=== PATIENT | female | born 1965 | race Caucasian/White ===

== ENCOUNTER → 2016-11-07 | Outpatient (CLI) | payer BC ==
[2016-11-11 20:41] LABS: ANAPLASMA PHAGOCYTOPHIL IGG <1:64 (<1:64); ANAPLASMA PHAGOCYTOPHIL IGM <1:20 (<1:20); EHRLICHIA CHAFF IGG AB <1:64 (<1:64); EHRLICHIA CHAFF IGM AB <1:20 (<1:20)
== END | disposition home or self-care (01) ==
LOC: C.LAB1850 14:04
PROVIDERS: ATTEND Internal Medicine Infectious Disease
DX: A69.20 Lyme disease, unspecified (principal)

== ENCOUNTER 2023-10-17 07:17 | Observation (INO) ==
--- NOTE | 2023-06-01 20:11 | PAT Medication Instructions ---
Medication Instructions Date of Service June 01, 2023 Home Medications cephalexin 500 mg capsule 500 mg PO QID furosemide 20 mg tablet (Lasix) 20 mg PO DAILY PRN Edema oxycodone-acetaminophen 5 mg-325 mg tablet (Percocet) 1 tab PO Q4H PRN Pain Continue as directed cephalexin 500 mg capsule 500 mg PO QID DO NOT take the morning of surgery furosemide 20 mg tablet (Lasix) 20 mg PO DAILY PRN Edema Take morning of surgery With a small sip of water, OTHERWISE NOTHING TO EAT OR DRINK AFTER MIDNIGHT: oxycodone-acetaminophen 5 mg-325 mg tablet (Percocet) 1 tab PO Q4H PRN Pain (if needed) Take evening before surgery oxycodone-acetaminophen 5 mg-325 mg tablet (Percocet) 1 tab PO Q4H PRN Pain (if needed) furosemide 20 mg tablet (Lasix) 20 mg PO DAILY PRN Edema (if needed) Other Notes If you have any questions please call us at [phone] or [phone] or [phone] or [phone]
--- NOTE | 2023-06-09 10:29 | Anesthesiology Consultation ---
Date of Service June 09, 2023 Assessment & Plan (1) Encounter for pre-operative examination: Chart Review Chart Review: Acceptable Risk for Surgery (pending PCP response/updated ECHO due to heart murmur ) and Patient seen in Pre Admission Testing - Send optimization note to PCP (LYNNE Goss- Uyen LEPE) re: murmur on exam- recommend ECHO prior to surgery - Due to BMI- patient is NOT an idea candidate for OPJ Per PAT appt on 06/09/23- no recent Covid exposures, Covid related symptoms, or recent Covid positive tests. Will leave to surgeon's discretion if preop Covid testing needed. Teaching & Discussion Pre-Anesthesia Teaching/Discussion Notes: Instructed NPO after midnight before surgery,except medications with 15 cc of water. Medication instructions provided according to the PAT guidelines. History Surgery Operation Date: 07/14/23 08:50 Proposed Procedures p Left Total Knee Arthroplasty - Florin Peterson MD Height/Weight Height: 5 ft 3 in Weight: 133.6 kg Allergies Allergy/AdvReac Type Severity Reaction Status Date / Time No Known Allergies Allergy Verified 06/01/23 12:09 Medications Home Medications Medication Instructions Recorded Confirmed Last Taken cephalexin 500 mg capsule 500 mg PO QID 06/01/23 06/01/23 Unknown furosemide 20 mg tablet (Lasix) 20 mg PO DAILY PRN Edema 06/01/23 06/01/23 Unknown oxycodone-acetaminophen 5 mg-325 1 tab PO Q4H PRN Pain 06/01/23 06/01/23 Unknown mg tablet (Percocet) Past Medical History Medical History Diverticulosis Hx of diverticulitis - no recent issues History of kidney stones Morbid obesity Osteoarthritis Sleep apnea unable to tolerate CPAP Exercise / Class Metabolic Activity III < 4 Walking/Shop/Light housework (no chest pain or SOB with flat surface ambulation- no walking device needed ) Past Surgical History Surgical History History of cholecystectomy History of colonoscopy History of laparotomy for ruptured ovarian cyst History of lithotripsy 05/22/23 History of removal of ureteral stent 06/05/23 History of surgery benign tumor excision scalp History of tubal ligation Past Anesthesia History No Hx of Anesthesia Complications and No Family Hx of Anesthesia Complications History of PONV No Hx of Motion Sickness and History of PONV (remote hx with under anesthesia for longer period of time ) Social History Smoking Status: Never smoker Do You Dip or Chew Tobacco: No Hx Alcohol Use: Yes alcohol intake frequency: a few times a month Hx Substance Use: No substance use type: does not use Review of Systems Patient denies chest pain, shortness of breath, dyspnea on exertion, reflux, cough, wheezing, palpitations. No hx of seizures, stroke, [place]. No hx of blood clots or blood transfusions Physical Exam Vital Signs VITALS BP 135/88 P 67 TEMP 97.8 SP02 94% RESP 16 Constitutional no acute distress ENMT Mouth: no TMJ clicking Thyromental Distance: > or= 3.5 Finger Breadths (3.5) Mallampati Class: III Permanent bridge top front Missing molar Crowns to molars Neck neck extension not limited Respiratory normal respiratory effort; no respiratory distress Auscultation: lungs clear to auscultation bilaterally; no wheezes Cardiovascular Rate/Rhythm: regular rate and regular rhythm Heart Sounds: + murmur (II/ murmur noted ) Vessels: no carotid bruit Musculoskeletal Spine: no pain with cervical ROM Extremities: extremities normal to inspection Psychiatric Orientation: alert Lab Results Anesthesia Preop Results Results Anesthesia Widget: 2 WBC 8.51 K/ul (4.8-10.8) 06/09/23 Hgb 14.7 g/dl (12.0-16.0) 06/09/23 Hct 43.9 % (37.0-47.0) 06/09/23 Plt 273 K/uL (130-400) 06/09/23 Na 139 mmol/L (136-145) 06/09/23 K 4.1 mmol/L (3.5-5.1) 06/09/23 Cl 104 mmol/L (98-107) 06/09/23 CO2 31 mmol/L (21-32) 06/09/23 BUN 16 mg/dl (6-23) 06/09/23 Creat 0.68 mg/dl (0.6-1.2) 06/09/23 Glucose Level 97 mg/dl (70-99(Fasting)) 06/09/23 PT 11.0 Seconds (9.0-12.0) 06/09/23 PTT 27.6 Seconds (21.0-31.0) 06/09/23 INR 1.0 (0.9-1.1) 06/09/23 Blood Type O Negative 06/09/23 Antibody Screen NEGATIVE 06/09/23 Testing Electrocardiogram Date: 06/09/23 NSR at 63bpm Normal EKG per cardio Chest X-Ray Date: 06/09/23 Findings: + NAD
--- NOTE | 2023-10-10 13:58 | Anesthesiology Consultation ---
Date of Service October 10, 2023 Assessment & Plan (1) Encounter for pre-operative examination: Chart Review Chart Review: Acceptable Risk for Surgery and Patient NOT seen in Pre Admission Testing - Patient is NOT an OPJ candidate (scheduled as 23 hour obs) -Infectious Disease screening: Per PAT nursing assessment on 10/10/23. No known infectious disease contacts in past 10 days or current infectious disease symptoms. No recent travel outside the country. History Surgery Operation Date: 10/17/23 07:00 Proposed Procedures p Left Total Knee Arthroplasty - Florin Peterson MD Height/Weight Height: 5 ft 3 in Weight: 117.299 kg Allergies Allergy/AdvReac Type Severity Reaction Status Date / Time No Known Allergies Allergy Verified 10/10/23 12:51 Medications Home Medications Medication Instructions Recorded Confirmed Last Taken Wheeled Walker #1 ea 06/28/23 07/13/23 Unknown amino acids 1 tab PO UD 10/10/23 10/10/23 Unknown Past Medical History Medical History Slow to wake up after anesthesia Morbid obesity has lost 36 pounds since 06/2023; insurance had originally denied sx without weight loss Osteoarthritis History of kidney stones Diverticulosis Hx of diverticulitis - no recent issues Sleep apnea unable to tolerate CPAP Past Surgical History Surgical History History of removal of ureteral stent 06/05/23 History of tubal ligation History of surgery benign tumor excision scalp History of cholecystectomy History of laparotomy for ruptured ovarian cyst History of colonoscopy History of lithotripsy 05/22/23 Social History Smoking Status: Never smoker Do You Dip or Chew Tobacco: No Hx Alcohol Use: Yes Alcohol type: wine and hard liquor alcohol intake frequency: a few times a month Alcohol Intake Frequency Comment: maybe once or twice per week Hx Substance Use: No substance use type: does not use Lab Results Anesthesia Preop Results Results Anesthesia Widget: WBC 8.28 K/ul (4.8-10.8) 10/03/23 Hgb 16.7 g/dl (12.0-16.0) H 10/03/23 Hct 49.0 % (37.0-47.0) H 10/03/23 Plt 343 K/uL (130-400) 10/03/23 Na 140 mmol/L (136-145) 10/03/23 K 3.9 mmol/L (3.5-5.1) 10/03/23 Cl 101 mmol/L (98-107) 10/03/23 CO2 30 mmol/L (21-32) 10/03/23 BUN 15 mg/dl (6-23) 10/03/23 Creat 0.79 mg/dl (0.6-1.2) 10/03/23 Glucose Level 100 mg/dl (70-99(Fasting)) H 10/03/23 PT 11.0 Seconds (9.0-12.0) 10/03/23 PTT 30 Seconds (21-31) 10/03/23 INR 1.0 (0.9-1.1) 10/03/23 Blood Type O Negative 10/03/23 Antibody Screen NEGATIVE 10/03/23 Testing Electrocardiogram Date: 06/09/23 NSR at 63bpm Normal EKG per cardio Chest X-Ray Date: 06/09/23 Findings: + NAD Echocardiogram Date: 06/22/23 Calculated EF = 54%. Mild concentric LVH. Nondilated cardiac chambers. Mild aortic valve sclerosis is present. Aortic valve sclerosis without stenosis. Mild MR. Mild TR. Estimated PASP 33 mmHg. Pulmonary hypertension is present. PA systolic pressure is >39 mmHg.
[~2023-10-17 07:17] MED LIST: ACETAMINOPHEN 500 MG TAB PO SCH; BUPIVACAINE LIPOSOME/PF 266 MG, BUPIVACAINE/EPINEPHRINE 50 ML, SODIUM CHLORIDE 0.9% PF ... INFIL SCH; CeleBREX 200 MG CAP PO SCH; FAMOTIDINE 20 MG TAB PO SCH; LR 500ML BOLUS, THEN 15ML/HR IV SCH; LR 60ML/HR IV SCH; METOCLOPRAMIDE HCL 10 MG TABLET PO SCH; ROPIVACAINE 0.5% 5 MG/ML 30 ML VIAL ONE; Scopolamine 1 MG TDSY TD SCH; TRANEXAMIC ACID 1,000 MG **IV Intra-op IV SCH; ceFAZolin 2000MG 2,000 MG/15 ML SYR IV SCH; dexAMETHasone 4 MG TAB PO SCH
[2023-10-17] MEDS ORDERED: PROPOFOL IV EMULSION 10 MG/ML 20 ML VIAL IV ONE (07:23)
[2023-10-17] MEDS ORDERED: MIDAZOLAM HCL 1 MG/ML 2ML VIAL ONE ×2 (07:23→09:29)
[2023-10-17] MEDS ORDERED: LIDOCAINE 2% 2 ML VIAL/AMP(20MG/ML) INFIL ONE (07:23)
[2023-10-17] MEDS ORDERED: ONDANSETRON INJ 2 MG/ML 2 ML VIAL ONE (07:23)
[2023-10-17] MEDS ORDERED: ATROPINE SULFATE 0.1 MG/ML 10ML SYR IV PRN (08:14)
[2023-10-17] MEDS ORDERED: ePHEDrine sulfate 50 MG/ML AMP IV PRN (08:14)
[2023-10-17] MEDS ORDERED: KETOROLAC 30 MG/ML VIAL IV PRN (08:14)
[2023-10-17] MEDS ORDERED: ONDANSETRON INJ 2 MG/ML 2 ML VIAL IV PRN ×2 (08:14→12:24)
[2023-10-17] MEDS: LR 500ML BOLUS, THEN 15ML/HR IV SCH (08:24)
--- NOTE | 2023-10-17 08:49 | History & Physical Bridge Note ---
Date of Service October 17, 2023 History & Physical Bridge Note I have examined the patient, reviewed the History & Physical and in the interval since the performance of the History & Physical I have noted the following changes of clinical significance: no changes noted
[2023-10-17] MEDS ORDERED: SODIUM CHLORIDE 0.9% PF 50 ML VIAL ONE (08:58)
[2023-10-17] MEDS ORDERED: BUPIVACAINE/EPINEPHRINE 0.25% 1:200,000 30 ML VIAL ONE (08:58)
[2023-10-17] MEDS ORDERED: BUPIVACAINE LIPOSOME 1.3% 266 MG/20 ML VIAL ONE (08:59)
--- NOTE | 2023-10-17 11:20 | Operative Report ---
PG Post Operative Report Pre & Post Diagnosis Operation Date: 10/17/23 08:50 Pre-Op Diagnosis: Left Knee Degenerative Joint Disease Post-Op Diagnosis: Left Knee Degenerative Joint Disease I identified the patient and participated in the time-out.: Yes Procedure Operation Date: 10/17/23 08:50 Actual Procedures p Left Total Knee Arthroplasty(Left) - Florin Peterson MD Surgeon Florin Peterson MD Experienced Truck Driver Dev Ogden PA-C Estimated Blood Loss 50 Findings Consistent with Post-Op Diagnosis Operative findings reveal advanced left knee tricompartment DJD. She had extensive grade 4 [id number] disease in all 3 compartments most severe medially. She had about a 10 degree flexion contracture only bend to about 100 degrees preoperatively. Moderate-sized joint effusion. Osteophytes in all 3 compartments. Specimens Left knee sent for pathology. Drains None Anesthesia Type Spinal MAC Complications none Disposition Accompanied Patient To Recovery: No Indications Patient is a 58-year-old female whose had a long history of bilateral knee pain discomfort left side bit worse than the right. She been through extensive conservative treatment which became less successful over time. Become more debilitated by pain. X-ray showed advanced left knee DJD. She elected proceed with surgical treatment. Of note, she was scheduled for surgery previously but canceled as she was denied due to her BMI. She has lost about 35 pounds over the past 4 months and now deemed an acceptable candidate from the insurance standpoint. She has been approved. She is desires to proceed with total knee arthroplasty. Description of Procedure Operative implants consist of: 1 Biomet Vanguard size 65 left posterior stabilized femoral component. 2. Biomet Vanguard size 67 tibial tray. 3. 10 mm posterior stabilized polyethylene insert. 4. 31 x 8 all poly patella. The patient was taken to the operating, identified, placed on the operating table in the supine position. All contact areas were appropriately padded. IV antibiotics tried by anesthesia team. A spinal anesthetic and adductor canal block had been provided in the holding area. Butler catheter was placed in sterile fashion. Left thigh tent was then placed in left lower extremity was then prepped and draped in usual sterile fashion. The left leg was elevated exsanguinated with use of an Esmarch and the tourniquet was placed at 300 mmHg. An anterior approach the left knee was then performed to longitudinal incision centered over the patella. Sharp dissection was carried through subcutaneous tissue down the extensor mechanism. A medial parapatellar arthrotomy incision was made. Some subperiosteal dissection was carried out medially. The fat pad was dissected from Neath patella tendon. Lateral patellofemoral ligament was released. Patella subluxated laterally and the knee was flexed. The osteophytes taken on distal femur. The ACL and PCL were released from the distal femur the tibia subluxated anteriorly. The external tibial alignment jig was then placed in the interface the tibia and adjusted 14 mm medially. Proximal tibial cut was made to move out a millimeter or 2 of bone from the most deficient aspect medial tibial plateau. Some osteophytes taken off medially. The tibia was sized to a size 67. Attention drawn the femur. The distal femur examined the sharp drop with intramedullary canal was suction. A left 5 degree valgus cutting guide was placed. The distal femoral cutting block was pinned in place. This femoral cut was made take an additional 3 mm of bone off distal femur. Femur was then sized to a size 65. We downsize this almost an entire size due to the more narrow medial and lateral dimensions of the femur. The AP cutting block was pinned parallel to the epicondylar axis which was 5 degrees of external rotation. The anterior cut, anterior chamfer, posterior cut, posterior chamfer cuts were made. The box cutting guide was placed in just slight lateral and the box cut was made. The knee was flexed. The remnants of the medial and lateral menisci were excised. The osteophytes were taken off the posterior aspect the femur. She did have quite a bit of bone posteriorly on x-ray but I palpated for these bone fragments and they are outside the capsule. We elected to leave them intact and in place as I was concerned it would cause potential neurovascular damage. A trial femoral component was placed. The tibia was subluxated anteriorly. The tibial tray was pinned in maximum external rotation and the drill and stem punch used to create defect in proximal tibia for the tibial tray. Knee was then trialed and 10 mm insert fit most appropriately. Attention drawn the patella. The patella was cleaned of all soft tissues. Patella thickness measured 21 mm in thickness was cut down to 13. Was sized to a size 31 patella. The lug holes were drilled for 31 patella. The lateral osteophytes removed. Patella button was placed. Knee was taken through range of motion patella tracked nicely with no thumbs test. Attention drawn to placing permanent components. Nupathe all trial components were removed. Bone plug was placed in the distal femur limit blood loss. Double batch Palacos G cement was mixed. Biomet Vanguard size 65 left Po stabilized femoral component, a size 67 tibial tray, 10 mm pro stabilized polyethylene insert, and a 31 x 8 all poly patella then cemented in place. Knee was brought out into full extension till cement hardened. Final cement was then performed. Pericapsular tissues were injected with total 100 cc of combination of 20 cc of Exparel, 30 cc normal saline, 50 cc of quarter percent Marcaine with epinephrine. Patient did receive 1 g tranexamic acid. The tourniquet was then let down for final tourniquet time 61 minutes. Hemostasis assured use electrocautery. The extensor Meclomen closed with combination 1 PDS suture #1 Vicryl suture in a [id number] fashion. Extensor Meclomen checked found to be intact through subcutaneous tissue then closed with 2 Dexon suture in a buried interrupted fashion the skin was closed skin luis armando. Leg was then cleaned and dried and sterile dressing with Xeroform, 4 fours, sterile cast padding, Jamil bandage were applied. Patient then transferred to the recovery in stable condition. Patient tolerated procedure well and there were no complications. Dev Ogden, my physician business development assistant, was present for the entire procedure. His assistance was essential and required for appropriate patient positioning, prepping and draping, surgical exposure, performing the technical details of the operation, placement the implants, closure of the wound, and placement of the sterile bandage. I attest to the content of the Intraoperative Record and any orders documented therein. Any exceptions are noted below.
--- NOTE | 2023-10-17 11:27 | XRay Report ---
XR knee LT 1 or 2V routine CLINICAL HISTORY: Surgical Post Op TECHNIQUE: 2 views of the left knee were obtained. Comparison: Comparison is made to knee radiographs 06/23/2023 FINDINGS: Patient is status post total knee arthroplasty with expected postsurgical changes including soft tiss ue swelling and subcutaneous emphysema. No periarticular lucency or hardware fracture is seen. IMPRESSION: Expected postoperative appearance status post placement of total knee arthroplasty. ACT 112: Negative or not required by law. Electronically signed by: Marcus Prajapati M.D. 10/17/2023 11:26 AM
[2023-10-17] MEDS: HYDROmorphone INJ 1 MG/ML SYRINGE IV PRN ×2 (11:36→11:48)
[2023-10-17] MEDS ORDERED: METOCLOPRAMIDE HCL INJ 5 MG/ML 2 ML VIAL IV PRN (12:24)
[2023-10-17] MEDS ORDERED: NALOXONE HCL 0.4 MG/1 ML VIAL/CARP IV PRN (12:24)
[2023-10-17] MEDS ORDERED: NON-FORMULARY MEDICATION (Amino Acids Tablet) PO SCH (12:24)
[2023-10-17] MEDS ORDERED: bisacodyL 10 MG SUPP PR PRN (12:24)
[2023-10-17] MEDS ORDERED: diphenhydrAMINE Capsule 25 MG CAP PO PRN (12:24)
[2023-10-17] MEDS ORDERED: MAGNESIUM HYDROXIDE SUSP 30 ML UDC PO PRN (12:24)
[2023-10-17] MEDS ORDERED: ALUMINUM/MAGNESIUM SUSP 30 ML UDC PO PRN (12:24)
--- NOTE | 2023-10-17 12:35 | Anesthesiology Progress Note ---
Date of Service October 17, 2023 Anesthesia Post Procedure Vital Signs Vital Signs: Temp Pulse Pulse Pulse Resp BP Pulse Ox 10/17/23 12:25 36.7 C 56 L 16 130/79 96 10/17/23 12:00 36.5 C 66 15 115/58 L 95 10/17/23 11:50 56 L 13 107/54 L 98 10/17/23 11:40 57 L 17 119/70 99 10/17/23 11:30 56 L 19 109/62 97 10/17/23 11:20 69 15 110/80 100 10/17/23 11:12 36.1 C L 74 18 122/64 95 10/17/23 07:44 10/17/23 07:44 36.8 C 69 20 109/88 93 O2 Del Method O2 Flow Rate 10/17/23 12:25 Nasal Cannula 2 10/17/23 12:00 Nasal Cannula 2 10/17/23 11:50 Nasal Cannula 2 10/17/23 11:40 Nasal Cannula 2 10/17/23 11:30 Nasal Cannula 2 10/17/23 11:20 Oxymask 9 10/17/23 11:12 Oxymask 9 10/17/23 07:44 Room Air 10/17/23 07:44 Room Air Pain Intensity Left Knee: Pain Intensity: 6 Transfer of Care Handoff Completed per policy Notes Mental Status: alert / awake / arousable Patient Amnestic to Procedure: Yes Nausea / Vomiting: adequately controlled Pain: adequately controlled Airway Patency, RR, SpO2: stable & adequate BP & HR: stable & adequate Hydration State: stable & adequate Neuraxial Anesthesia: was administered and sensory block is resolving Anesthetic Complications: no major complications apparent
[2023-10-17] MEDS: HYDROmorphone INJ 0.5 MG/0.5 ML SYR IV PRN (12:42)
[2023-10-17] MEDS: SODIUM CHLORIDE 0.9% 1,000 ML IV SCH ×2 (12:42→22:48)
[2023-10-17] MEDS: KETOROLAC 30 MG/ML VIAL IV SCH ×2 (12:42→18:25)
[2023-10-17] MEDS: ACETAMINOPHEN 500 MG TAB PO SCH ×2 (12:49→20:35)
[2023-10-17] MEDS: oxyCODONE HCL IR 5 MG TAB (IMMEDIATE RELEASE) PO PRN ×2 (14:27→20:34)
[2023-10-17] MEDS: Scopolamine CHECK PATCH PLACEMENT SCH (14:28)
[2023-10-17] MEDS: ASCORBIC ACID 500 MG TAB PO SCH (16:54)
[2023-10-17] MEDS: ceFAZolin 2000MG 2,000 MG/15 ML SYR IV SCH (16:56)
[2023-10-17] MEDS ORDERED: TRANEXAMIC ACID / 0.7% NACL 1,000 MG/100 ML BAG IV SCH (17:30)
[2023-10-17] MEDS: DOCUSATE SODIUM 100 MG CAP PO SCH (20:34)
[2023-10-17] MEDS: ASPIRIN 81 MG ECTAB PO SCH (20:35)
[2023-10-17] MEDS: SENNA 8.6 MG TAB PO SCH (20:35)
[2023-10-17] MEDS ORDERED: SENNA 8.6 MG TAB PO SCH (21:00)
[2023-10-18] MEDS: Scopolamine CHECK PATCH PLACEMENT SCH ×3 (00:04→14:56)
[2023-10-18] MEDS: ceFAZolin 2000MG 2,000 MG/15 ML SYR IV SCH (01:32)
[2023-10-18] MEDS: KETOROLAC 30 MG/ML VIAL IV SCH ×4 (01:33→18:43)
[2023-10-18] MEDS: oxyCODONE HCL IR 5 MG TAB (IMMEDIATE RELEASE) PO PRN ×4 (02:32→20:27)
[2023-10-18] MEDS: LR 500ML BOLUS, THEN 15ML/HR IV SCH (05:16)
[2023-10-18 07:16] LABS: Hematocrit (blood only) 37.4 % (37.0-47.0); Hemoglobin 11.9 g/dl (12.0-16.0); Mean Corpuscular Hemoglobin 30.8 pg (25.0-34.0); Mean Corpuscular Hgb Conc 31.8 g/dL (32.0-36.0); Mean Corpuscular Volume 96.9 fL (80.0-100.0); Mean Platelet Volume 10.2 fL (9.4-12.4); Platelet Count 241 K/uL (130-400); RDW Coefficient of Variation 12.5 % (11.5-14.5); RDW Standard Deviation 44.9 fL (36.4-46.3); Red Blood Count 3.86 M/uL (4.20-5.40); White Blood Count 12.52 K/ul (4.8-10.8)
[2023-10-18 07:47] LABS: BUN Creatinine Ratio 18.9 (10-20); Creatinine Clr Calc Pharmacy 103.7 ml/min; Est GFR (African American) 103.5 ml/min; Est GFR (Non-African American) 89.3 ml/min; Potassium 4.5 mmol/L (3.5-5.1)
[2023-10-18] MEDS ORDERED: dexAMETHasone 10 MG in SYRINGE 0 ML IV SCH (08:00)
[2023-10-18] MEDS: DOCUSATE SODIUM 100 MG CAP PO SCH ×2 (08:23→20:28)
[2023-10-18] MEDS: ASCORBIC ACID 500 MG TAB PO SCH ×2 (08:23→16:56)
[2023-10-18] MEDS: ACETAMINOPHEN 500 MG TAB PO SCH ×3 (08:23→20:28)
[2023-10-18] MEDS: ASPIRIN 81 MG ECTAB PO SCH ×2 (08:23→20:28)
[2023-10-18] MEDS: MULTIVITAMIN TAB PO SCH (08:23)
--- NOTE | 2023-10-18 09:23 | Orthopedic Progress Note ---
Date of Service October 18, 2023 Assessment & Plan (1) Status post left knee replacement: Overall, she is doing quite well today with good pain control at the left knee. She will be seen by physical therapy today to work on ambulation and range of motion exercises. She is on aspirin for DVT prophylaxis. She can be discharged home later today pending physical therapy evaluation. She will follow-up in [address] Peterson for postoperative care. Clyde Briones) was seen and evaluated at bedside today resting comfortably in no apparent distress. She notes that her pain is well-controlled today to the left knee. She notes that she has been up and out of bed but has not ambulated much yet. She has yet to been seen by physical therapy this morning. She denies any other concerns today. Review of Systems All systems reviewed & are unremarkable except as noted in HPI & below. Physical Exam . On physical examination of her left knee, her dressing is in place, clean, dry, and intact. Her leg is out in full extension. She has active plantarflexion dorsiflexion to the left ankle. +2 DP and PT pulses. Less than 2-second cap illary refill. Normal sensation. Neurovascular intact. Results & Data Results & Data Laboratory Results . Diagnostic Findings . Postoperative x-rays of the left knee show the prosthesis to be in anatomical alignment with no evidence of fracture complication or loosening. PG Care Time/CCT Total # of Minutes Spent Total Time Spent with Patient: Total time spent is greater than 50% in coordination of care (as documented) at patient's floor/unit and/or counseling patient: Coding Level of Care Code 06707 Post Operative Follow-Up Diagnoses Status post left knee replacement Z96.652
--- NOTE | 2023-10-18 09:26 | Discharge Summary ---
Date of Service October 18, 2023 Principal Diagnosis Same as "Discharge Diagnosis" noted below under Discharge Instructions. Discharge Exam . On physical examination of her left knee, her dressing is in place, clean, dry, and intact. Her leg is out in full extension. She has active plantarflexion dorsiflexion to the left ankle. +2 DP and PT pulses. Less than 2-second capillary refill. Normal sensation. Neurovascular intact. Discharge Data Procedures Performed Operation Date: 10/17/23 08:50 Actual Procedures p Left Total Knee Arthroplasty(Left) - Florin Peterson MD Ordered Studies 10/17/23 05:00 US - OR guided needle placemen Routine Hospital Course (1) Status post left knee replacement: On October 17, 2023 Gisselle Briones) arrived at [facility] and underwent a left total knee arthroplasty without complications. She had a spinal anesthetic. Postoperatively, she was started on aspirin for DVT prophylaxis and transferred to the general orthopedic floor in stable condition. Her hospital course was uneventful. On postoperative day #1, her vital signs were stable and her pain was well-controlled. She participated well with physical therapy working on ambulation and range of motion exercises. She was then discharged home in stable condition. She is going to follow-up with Dr. Peterson in 2 weeks for postoperative care. PG Care Time/CCT Total # of Minutes Spent Total Time Spent with Patient: Total time spent is greater than 50% in coordination of care (as documented) at patient's floor/unit and/or counseling patient: Discharge Plan Discharge Items Patient Disposition: Home - Home Health Services Reason For Visit: Left Knee Degenerative Joint Disease Discharge Diagnosis: Left Knee Replacement Activity: Per Instructions section Weightbearing: Full weightbearing Non-emergency contact: Surgeon Call non-emergency contact if: you have any medication questions Follow-up/Referrals: Uyen Jean CRNP [Primary Care Provider] - Diet: Regular Addtl Attending Provider Instructions: ACTIVITY RECOMMENDATIONS: Physical Therapy: * You will go to physical therapy three times each week for four to six weeks after your surgery in order to regain your knee range of motion and to retrain your knee to work properly. * It is just as important to make sure you are getting your knee perfectly straight as it is to regain your knee bend. * Taking a pain pill an hour before therapy can help you have a more productive and comfortable therapy session. Home Exercise: * You were shown a series of exercises (heel props, heel slides, etc.) in the hospital. Do these exercises three to four times each day including the exercises you were shown in physical therapy. Walking: * Get up and walk several times each day. For the first four weeks, try not to stand or walk for more than one hour at a time. If you do stand or walk for more than one hour, you will not hurt anything, but your knee and leg will likely swell. * As you feel comfortable, you may change from the walker or crutches to a cane and then to independent walking. MEDICATIONS: New Medicine: * You will likely be taking one or more of these medications: 1. Oxycodone - A quick and shorter-acting pain medication. Take one to two tablets every six hours to lessen your pain. 2. Aspirin - Thins your blood to lessen the chance of forming a blood clot. * The most common side effects of pain medicine and iron are nausea and constipation. If nausea or constipation is too much of a problem or if you have any questions about your new medicines or doses, call [facility] at [phone]. We will try to help you manage these issues. "VERY IMPORTANT TO READ AND REVIEW" Pain: * The immediate post-operative period after knee replacement surgery is often quite painful. * You are given a prescription for pain medicine. You should take it, as directed, when you need it, especially before physical therapy and before going to bed. Pain that interferes with sleep is very common and can last several months. * You will likely need pain medicine for the first four to six weeks. It will not stop all of the pain. The pain will lessen and as you feel better, you may change to milder pain medicine such as Tylenol. * The most common side effects of pain medicine are nausea and constipation, so don't take more than you need. SPECIAL CARE INSTRUCTIONS: TEDs/Elastic Stockings: * The white elastic stockings help limit swelling and prevent blood clots from forming in your legs. The more you wear them, the more they work. * Wear them for six weeks after knee replacement surgery and four weeks after partial knee replacement. Incision Site Care: * Remove dressing postoperative day 2 and then shower. Keep direct shower pressure off the incision site. * After showering, cover luis armando with dry gauze and change daily or more frequently if the dressing is getting saturated with drainage. * Use the MYNOR stockings to hold dressing in place. DO NOT apply tape on the skin. * May completely stop using bandage if wound is dry and no drainage * Jackson are removed between 2 and 3 weeks post-op. If your follow-up appointment is made before 2 weeks, please have your appointment re- scheduled. It is too early to remove the luis armando. Prevention of Infection: * Take antibiotics one hour before any dental cleaning, dental work, urological procedure, gastrointestinal procedure or any invasive surgery in order to prevent your new joint from getting infected. * You may get the antibiotics from the doctor performing the procedure or you may call our office at [phone] before and we will call in a prescription to the pharmacy of your choice. Things to Watch For: * Drainage from the incision site that occurs more than one week after your surgery. * Severely increased knee/leg pain or swelling. * Increased redness at the incision site. * Fever above 102 degrees Fahrenheit. * Unusual chest pain or shortness of breath. * Unusual pain or burning with urination. Call [facility] at [phone] with any of the above problems or if you have any questions about your medicines or recovery. FOLLOW UP VISIT: Make an appointment to see your doctor for approximately two weeks after surgery for a progress check and staple removal by calling the office at [phone]. Pending Studies at Discharge: No Stand-Alone Forms: My [facility] [employer], Smoking Cessation Medications and DC Order Prescriptions: Continued (DME) Wheeled Walker [facility] See Rx Instructions .MEDSUPPLY Qty: 1 0RF Rx Instructions: As directed oxycodone 5 mg tablet 5 - 10 mg PO Q6 PRN (Reason: pain) Qty: 40 0RF Rx Instructions: Take as needed for pain ondansetron 4 mg tablet,disintegrating 4 mg PO Q8 PRN (Reason: nausea) Qty: 20 1RF Rx Instructions: Take as needed for nausea sennosides [Senokot] 8.6 mg tablet 8.6 mg PO BID 14 Days Qty: 28 0RF Rx Instructions: Take two times a day to prevent/treat constipation ketorolac 10 mg tablet 10 mg PO Q6 PRN (Reason: pain) 5 Days Qty: 20 0RF Rx Instructions: Take 4 times per day with food for 5 days to lessen pain and swelling. acetaminophen [Tylenol Extra Strength] 500 mg tablet 1,000 mg PO TID 30 Days Qty: 180 0RF Rx Instructions: Take 3 times per day to lessen pain. aspirin [Tessy Low Dose Aspirin] 81 mg tablet,delayed release (DR/EC) 81 mg PO BID 45 Days Qty: 90 0RF Rx Instructions: Take to prevent blood clots. cefadroxil 500 mg capsule 500 mg PO BID 7 Days Qty: 14 0RF Rx Instructions: Take 1 cap twice a day to prevent infection amino acids Tablet 1 tab PO UD Admission Data Admit Date/Time: 10/17/23 11:13 Attending Provider: Florin Peterson Admit Provider: Florin Peterson Primary Care Provider: Uyen Jean Other Providers: [facility]
[2023-10-18] MEDS: HYDROmorphone INJ 0.5 MG/0.5 ML SYR IV PRN ×2 (11:27→22:04)
[2023-10-18] MEDS: SENNA 8.6 MG TAB PO SCH (20:28)
[2023-10-19] MEDS: Scopolamine CHECK PATCH PLACEMENT SCH ×2 (00:55→07:56)
[2023-10-19] MEDS: KETOROLAC 30 MG/ML VIAL IV SCH ×2 (01:07→05:47)
[2023-10-19] MEDS: LR 500ML BOLUS, THEN 15ML/HR IV SCH (05:01)
[2023-10-19] MEDS: HYDROmorphone INJ 0.5 MG/0.5 ML SYR IV PRN (05:46)
--- NOTE | 2023-10-19 07:06 | Surgery Progress Note ---
Date of Service October 19, 2023 Assessment & Plan (1) Status post left knee replacement: Plan: 58-year-old female postop day 2 from left knee replacement doing okay. Pretty painful yesterday but doing a little better this morning. Just feels better in general. She is neurologically intact. Plan: 1. DVT prophylaxis including thigh-high teds, SCDs, aspirin twice a day for 6 weeks. 2. PT/OT. Weight-bear as tolerated. Left total knee protocol. 3. Pain control doing okay with current pain regimen. 4. Disposition plan to discharge home with some home health if she does okay in therapy today Admission and Anticipated Discharge Date Admission Date: October 17, 2023 Subjective 58-year-old female postop day #2 from left knee replacement. Quite a bit of pain yesterday but feeling a bit better this morning. No chest pain or shortness of breath. Not feeling dizzy or lightheaded. Physical Exam Physical Exam: Physical examination is a pleasant middle-age female. She is she sitting on bed looks pretty comfortable this morning. Examination left leg reveals leg to be well aligned. Dressings clean dry and intact. She can dorsiflex and plantarflex her foot appropriately. She is neurologically intact. Results & Data Vital Signs (Past 12 Hours) Vital Signs Temp Pulse Resp BP Pulse Ox O2 Del Method 10/18/23 20:25 36.5 C 60 16 118/69 92 Room Air 10/18/23 19:45 Room Air PG Care Time/CCT Total # of Minutes Spent Total Time Spent with Patient: Total time spent is greater than 50% in coordination of care (as documented) at patient's floor/unit and/or counseling patient: Coding Level of Care Code 46572 Post Operative Follow-Up Diagnoses Status post left knee replacement Z96.652
[2023-10-19] MEDS: ACETAMINOPHEN 500 MG TAB PO SCH (07:55)
[2023-10-19] MEDS: ASCORBIC ACID 500 MG TAB PO SCH (07:55)
[2023-10-19] MEDS: ASPIRIN 81 MG ECTAB PO SCH (07:56)
[2023-10-19] MEDS: DOCUSATE SODIUM 100 MG CAP PO SCH (07:56)
[2023-10-19] MEDS: MULTIVITAMIN TAB PO SCH (07:56)
[2023-10-19] MEDS: oxyCODONE HCL IR 5 MG TAB (IMMEDIATE RELEASE) PO PRN (07:59)
--- NOTE | 2023-10-19 12:16 | Discharge Summary ---
Date of Service October 19, 2023 Principal Diagnosis Same as "Discharge Diagnosis" noted below under Discharge Instructions. Discharge Exam . On physical examination of her left knee, her dressing is in place, clean, dry, and intact. Her leg is out in full extension. She has active plantarflexion dorsiflexion to the left ankle. +2 DP and PT pulses. Less than 2-second capillary refill. Normal sensation. Neurovascular intact. Discharge Data Procedures Performed Operation Date: 10/17/23 08:50 Actual Procedures p Left Total Knee Arthroplasty(Left) - Florin Peterson MD Ordered Studies 10/17/23 05:00 US - OR guided needle placemen Routine Hospital Course (1) Status post left knee replacement: On October 17, 2023 Gisselle Briones) arrived at [facility] and underwent a left total knee arthroplasty without complications. She had a spinal anesthetic. Postoperatively, she was started on aspirin for DVT prophylaxis and transferred to the general orthopedic floor in stable condition. Her hospital course was uneventful. On postoperative day #1, her vital signs were stable and her pain was well-controlled in the morning. She participated well with physical therapy working on ambulation and range of motion exercises. Later on during the day, she stated that her pain increased and she needed to stay another night for analgesics regimen. On postoperative day #2, her vital signs are stable and her pain was well-controlled. She participated well with physical therapy working on ambulation and range of motion exercises. She was then discharged home in stable condition. She is going to follow-up with Dr. Peterson in 2 weeks for postoperative care. PG Care Time/CCT Total # of Minutes Spent Total Time Spent with Patient: Total time spent is greater than 50% in coordination of care (as documented) at patient's floor/unit and/or counseling patient: Discharge Plan Discharge Items Patient Disposition: Home - Home Health Services Reason For Visit: Left Knee Degenerative Joint Disease Discharge Diagnosis: Left Knee Replacement Activity: Per Instructions section Weightbearing: Full weightbearing Non-emergency contact: Surgeon Call non-emergency contact if: you have any medication questions Follow-up/Referrals: Uyen Jean CRNP [Primary Care Provider] - Diet: Regular Addtl Attending Provider Instructions: ACTIVITY RECOMMENDATIONS: Physical Therapy: * You will go to physical therapy three times each week for four to six weeks after your surgery in order to regain your knee range of motion and to retrain your knee to work properly. * It is just as important to make sure you are getting your knee perfectly straight as it is to regain your knee bend. * Taking a pain pill an hour before therapy can help you have a more productive and comfortable therapy session. Home Exercise: * You were shown a series of exercises (heel props, heel slides, etc.) in the hospital. Do these exercises three to four times each day including the exercises you were shown in physical therapy. Walking: * Get up and walk several times each day. For the first four weeks, try not to stand or walk for more than one hour at a time. If you do stand or walk for more than one hour, you will not hurt anything, but your knee and leg will likely swell. * As you feel comfortable, you may change from the walker or crutches to a cane and then to independent walking. MEDICATIONS: New Medicine: * You will likely be taking one or more of these medications: 1. Oxycodone - A quick and shorter-acting pain medication. Take one to two tablets every six hours to lessen your pain. 2. Aspirin - Thins your blood to lessen the chance of forming a blood clot. * The most common side effects of pain medicine and iron are nausea and constipation. If nausea or constipation is too much of a problem or if you have any questions about your new medicines or doses, call [facility] at . We will try to help you manage these issues. "VERY IMPORTANT TO READ AND REVIEW" Pain: * The immediate post-operative period after knee replacement surgery is often quite painful. * You are given a prescription for pain medicine. You should take it, as dir ected, when you need it, especially before physical therapy and before going to bed. Pain that interferes with sleep is very common and can last several months. * You will likely need pain medicine for the first four to six weeks. It will not stop all of the pain. The pain will lessen and as you feel better, you may change to milder pain medicine such as Tylenol. * The most common side effects of pain medicine are nausea and constipation, so don't take more than you need. SPECIAL CARE INSTRUCTIONS: TEDs/Elastic Stockings: * The white elastic stockings help limit swelling and prevent blood clots from forming in your legs. The more you wear them, the more they work. * Wear them for six weeks after knee replacement surgery and four weeks after partial knee replacement. Incision Site Care: * Remove dressing postoperative day 2 and then shower. Keep direct shower pressure off the incision site. * After showering, cover luis armando with dry gauze and change daily or more frequently if the dressing is getting saturated with drainage. * Use the MYNOR stockings to hold dressing in place. DO NOT apply tape on the skin. * May completely stop using bandage if wound is dry and no drainage * Climax are removed between 2 and 3 weeks post-op. If your follow-up appointment is made before 2 weeks, please have your appointment re- scheduled. It is too early to remove the luis armando. Prevention of Infection: * Take antibiotics one hour before any dental cleaning, dental work, urological procedure, gastrointestinal procedure or any invasive surgery in order to prevent your new joint from getting infected. * You may get the antibiotics from the doctor performing the procedure or you may call our office at [phone] before and we will call in a prescription to the pharmacy of your choice. Things to Watch For: * Drainage from the incision site that occurs more than one week after your surgery. * Severely increased knee/leg pain or swelling. * Increased redness at the incision site. * Fever above 102 degrees Fahrenheit. * Unusual chest pain or shortness of breath. * Unusual pain or burning with urination. Call [facility] at [phone] with any of the above problems or if you have any questions about your medicines or recovery. FOLLOW UP VISIT: Make an appointment to see your doctor for approximately two weeks after surgery for a progress check and staple removal by calling the office at [phone]. Pending Studies at Discharge: No Stand-Alone Forms: My [facility] [employer], Pain - Opioid Pain Management, Smoking Cessation Medications and DC Order Prescriptions: Continued (DME) Wheeled Walker Misc See Rx Instructions .MEDSUPPLY Qty: 1 0RF Rx Instructions: As directed oxycodone 5 mg tablet 5 - 10 mg PO Q6 PRN (Reason: pain) Qty: 40 0RF Rx Instructions: Take as needed for pain ondansetron 4 mg tablet,disintegrating 4 mg PO Q8 PRN (Reason: nausea) Qty: 20 1RF Rx Instructions: Take as needed for nausea sennosides [Senokot] 8.6 mg tablet 8.6 mg PO BID 14 Days Qty: 28 0RF Rx Instructions: Take two times a day to prevent/treat constipation ketorolac 10 mg tablet 10 mg PO Q6 PRN (Reason: pain) 5 Days Qty: 20 0RF Rx Instructions: Take 4 times per day with food for 5 days to lessen pain and swelling. acetaminophen [Tylenol Extra Strength] 500 mg tablet 1,000 mg PO TID 30 Days Qty: 180 0RF Rx Instructions: Take 3 times per day to lessen pain. aspirin [Tessy Low Dose Aspirin] 81 mg tablet,delayed release (DR/EC) 81 mg PO BID 45 Days Qty: 90 0RF Rx Instructions: Take to prevent blood clots. cefadroxil 500 mg capsule 500 mg PO BID 7 Days Qty: 14 0RF Rx Instructions: Take 1 cap twice a day to prevent infection amino acids Tablet 1 tab PO UD Kraal[place]/Other Patient Handouts: DVT Post Op Prevention Admission Data Admit Date/Time: 10/17/23 11:13 Attending Provider: Florin Peterson Admit Provider: Florin Peterson Primary Care Provider: Uyen Jean Other Providers: [facility] Other Interventions: Discharge Summary Assessment (RN) Last Done: 10/19/23 09:27
== END 2023-10-19 11:20 | disposition home health service (06) ==
LOC: 3E 07:17 → ASU 07:17